=== PATIENT | female | born 1970 | race American Indian/Alaskan Native ===

== ENCOUNTER 2016-05-28 19:25 | Emergency (ER) | payer SELFPAY ==
--- NOTE | 2016-05-28 20:57 | Emergency Department Report ---
Chief Complaint: Nausea/Vomiting/Diarrhea Stated Complaint: FEVER, NOT EATING Time Seen by Provider: 05/28/16 20:51 - HPI History of Present Illness: Patient presents with nausea and vomiting x 3 days, fever, chills, denies diarrhea. No sick contacts. Admits lower back pain radiates down bilateral legs and lower abdomen. Admits to urinary frequency. Denies chest pain, dizziness, shortness of breath. - ROS Review of Systems: All other systems unremarkable except documentation in HPI - Exam Vital Signs: Vital Signs 05/28/16 20:26 Temperature 99.2 F Pulse Rate 70 Respiratory 20 Rate Blood Pressure 142/94 O2 Sat by Pulse 100 Oximetry Physical Exam: Gen: Female well-developed and nourished, no apparent distress noted, ambulatory. Cardiovascular: Heart sounds present S1-S2, no murmur, gallop, edema or ectopy noted, 2+ pulses upper and lower extremities Respiratory: Chest symmetry with respirations, lungs clear to auscultate upper and lower lobes, respirations even and unlabored, no rales, rhonchi, crackles noted. Abdomen: bowel sounds present, soft, nondistended, nontender, no rigidity, guarding or rebound tenderness Psych: AxOx3, answers questions appropriately, mood full range, affect normal, normal speech and tone. MSE screening note: Focused history and physical exam performed. Due to findings the following was ordered: Patient seen by provider, will go to fast track for further evaluation ED Medical Decision Making - Medical Decision Making Patient seen by provider, will go to fast track for further evaluation ED Disposition for MSE Condition: Stable Referrals: PRIMARY CARE [Primary Care Provider] - 3-5 Days
[2016-05-28 21:38] LABS: Basophils % (Auto) 0.2 % (0.0-1.8); Hematocrit 40.7 % (30.3-42.9); Hemoglobin 13.8 gm/dl (10.1-14.3); Mean Corpuscular HGB Conc 34 % (30-34); Mean Corpuscular Hemoglobin 30 pg (28-32); Mean Corpuscular Volume 90 fl (79-97); Platelet Count 239 K/mm3 (140-440); Red Blood Count 4.52 M/mm3 (3.65-5.03); Red Cell Distribution Width 13.5 % (13.2-15.2)
[2016-05-28 21:50] LABS: Anion Gap 20 mmol/L; Blood Urea Nitrogen 8 mg/dL (7-17); Calcium 9.1 mg/dL (8.4-10.2); Carbon Dioxide 23 mmol/L (22-30); Chloride 93.9 mmol/L (98-107); Glucose 100 mg/dL (65-100); Sodium 133 mmol/L (137-145)
[2016-05-28] MEDS ORDERED: ROCEPHIN/NS 1 GM/50 ML 1 GM/50 ML BAG IV ONE (22:36)
[2016-05-28] MEDS ORDERED: NACL 0.9% 1000 ML 1,000 ML IV ONE (22:37)
[2016-05-28] MEDS ORDERED: ZOFRAN IV ONE (22:37)
[2016-05-28] MEDS ORDERED: TORADOL IV ONE (22:37)
[2016-05-28 23:01] LABS: Bacteria,Urine 1+ /HPF (Negative); Bilirubin,Urine NEG (Negative); Blood,Urine LG (Negative); Ketones,Urine 20 mg/dL (Negative); Leukocyte Esterase,Urine TR (Negative); Mucus,Urine 3+ /HPF; Nitrite,Urine POS (Negative)
--- NOTE | 2016-05-29 00:47 | Cat Scan Report ---
FINAL REPORT EXAM: CT ABDOMEN PELVIS WO CON HISTORY: right sided flank pain ? stone TECHNIQUE: Helical CT scan through the abdomen and pelvis without contrast. Images are reconstructed in the sagittal and coronal planes. PRIORS: None. FINDINGS: Solid organ and bowel evaluation is limited without intravenous contrast. Bowel evaluation is limited without oral contrast. The lung bases are clear. The liver, gallbladder, pancreas, spleen and adrenal glands appear normal. The kidneys appear grossly normal. There is no hydronephrosis or urolithiasis. There are multiple phleboliths in the pelvis. The pelvic organs appear grossly normal. There is a small amount of free pelvic fluid. The stomach appears grossly within normal limits. There are no abnormally dilated loops of bowel or acute inflammatory changes. A normal-appearing appendix is identified. The abdominal aorta has a normal diameter. The bones and subcutaneous soft tissues are unremarkable for age. IMPRESSION: There is a small amount of free pelvic fluid which is likely physiologic in nature. Otherwise, no acute findings.
--- NOTE | 2016-05-29 01:07 | Emergency Department Report ---
ED Female HPI - General Chief complaint: Nausea/Vomiting/Diarrhea Stated complaint: FEVER, NOT EATING Time Seen by Provider: 05/28/16 20:51 Source: patient Mode of arrival: Ambulatory Limitations: No Limitations - History of Present Illness Initial comments: 46-year-old female past medical history none presents with complaint of 3 days of increased urinary frequency nausea right-sided flank pain radiating down to the groin. Denies any new rash subjective fever chills, states she has a decreased appetite and vomited yesterday. States that she is experiencing increased urinary frequency and urine has somewhat foul odor. MD Complaint: dysuria Onset/Timin -: days(s) Location: suprapubic Radiation: non-radiating Severity scale (0 -10): 6 Quality: aching Consistency: constant Worsens with: urination Are you Now?: No Associated Symptoms: nausea/vomiting, loss of appetite - Related Data Previous Rx's Medication Instructions Recorded Last Taken Type Amoxicillin [Trimox CAP] 500 mg PO Q8H #30 capsule 07/13/13 Unknown Rx HYDROcodone/APAP 5-325 [[place] 1 each PO Q6HR PRN #20 tablet 07/13/13 Unknown Rx 5/325 mg] Ciprofloxacin HCl [Cipro] 500 mg PO Q12H #10 tab 11/22/13 Unknown Rx HYDROcodone/APAP 10-325 [[place] 1 each PO Q6HR PRN #16 tablet 11/22/13 Unknown Rx 10-325 mg TAB] metroNIDAZOLE [Flagyl] 500 mg PO Q12H #14 tablet 11/22/13 Unknown Rx Ciprofloxacin HCl [Ciprofloxacin 500 mg PO Q12H #14 tab 05/29/16 Unknown Rx TAB] Ibuprofen [Motrin] 600 mg PO Q8H PRN #30 tablet 05/29/16 Unknown Rx Allergies Allergy/AdvReac Type Severity Reaction Status Date / Time No Known Allergies Allergy Verified 05/28/16 20:30 ED Review of Systems ROS: Stated complaint: FEVER, NOT EATING Other details as noted in HPI Constitutional: denies: chills, fever Eyes: denies: eye pain, eye discharge, vision change ENT: denies: ear pain, throat pain Respiratory: denies: cough, shortness of breath, wheezing Cardiovascular: denies: chest pain, palpitations Endocrine: no symptoms reported Gastrointestinal: denies: abdominal pain, nausea, diarrhea Genitourinary: urgency, dysuria. denies: discharge Musculoskeletal: denies: back pain, joint swelling, arthralgia Skin: denies: rash, lesions Neurological: denies: headache, weakness, paresthesias Psychiatric: denies: anxiety, depression Hematological/Lymphatic: denies: easy bleeding, easy bruising ED Past Medical Hx - Past Medical History Previous Medical History?: Yes Additional medical history: hypoglycemic - Surgical History Past Surgical History?: Yes Additional Surgical History: hysterectomy - Social History Smoking Status: Current Every Day Smoker Substance Use Type: Alcohol, Marijuana - Medications Home Medications: Home Medications Medication Instructions Recorded Confirmed Last Taken Type Amoxicillin [Trimox CAP] 500 mg PO Q8H #30 capsule 07/13/13 Unknown Rx HYDROcodone/APAP 5-325 [[place] 1 each PO Q6HR PRN #20 tablet 07/13/13 Unknown Rx 5/325 mg] Ciprofloxacin HCl [Cipro] 500 mg PO Q12H #10 tab 11/22/13 Unknown Rx HYDROcodone/APAP 10-325 [[place] 1 each PO Q6HR PRN #16 tablet 11/22/13 Unknown Rx 10-325 mg TAB] metroNIDAZOLE [Flagyl] 500 mg PO Q12H #14 tablet 11/22/13 Unknown Rx Ciprofloxacin HCl [Ciprofloxacin 500 mg PO Q12H #14 tab 05/29/16 Unknown Rx TAB] Ibuprofen [Motrin] 600 mg PO Q8H PRN #30 tablet 05/29/16 Unknown Rx ED Physical Exam - General Limitations: No Limitations General appearance: alert, in no apparent distress - Head Head exam: Present: atraumatic, normocephalic - Eye Eye exam: Present: normal appearance - ENT ENT exam: Present: mucous membranes moist - Neck Neck exam: Present: normal inspection - Respiratory Respiratory exam: Present: normal lung sounds bilaterally. Absent: respiratory distress - Cardiovascular Cardiovascular Exam: Present: regular rate, normal rhythm. Absent: systolic murmur, diastolic murmur, rubs, gallop - GI/Abdominal GI/Abdominal exam: Present: soft, tenderness (patient has mild right-sided CVA tenderness), normal bowel sounds - Extremities Exam Extremities exam: Present: normal inspection - Back Exam Back exam: Present: normal inspection, CVA tenderness (R) (mild right-sided CVA tenderness) - Neurological Exam Neurological exam: Present: alert, oriented X3 - Psychiatric Psychiatric exam: Present: normal affect, normal mood - Skin Skin exam: Present: warm, dry, intact, normal color. Absent: rash ED Course Vital Signs 05/28/16 20:26 Temperature 99.2 F Pulse Rate 70 Respiratory 20 Rate Blood Pressure 142/94 O2 Sat by Pulse 100 Oximetry ED Medical Decision Making - Lab Data Result diagrams: 05/28/16 21:22 05/28/16 21:22 - Medical Decision Making A/P: Clinical pyelonephritis 1-patient has positive UA with clinical features of pyelonephritis including right-sided flank pain 2-patient does not appear toxic is able to tolerate fluid and food by mouth, feels significantly better with IV fluid and 1 dose of Toradol, 1 g of ceftriaxone given an ED 3-oh place patient on outpatient regimen of antibiotics for pyelonephritis treatment, I advised patient to return to the ED if she cannot tolerate anything by mouth and flank pain worsens or if she develops persistent fevers above 100.4 Fahrenheit despite antibiotic use. Cipro 500 twice a day for 7 days 4- follow-up with primary care doctor this week Critical care attestation.: If time is entered above; I have spent that time in minutes in the direct care of this critically ill patient, excluding procedure time. ED Disposition Clinical Impression: Pyelonephritis Disposition: DISCHARGED TO HOME OR SELFCARE Is pt being admited?: No Does the pt Need Aspirin: No Condition: Stable Instructions: Urinary Tract Infection in Women (ED), Acute Pyelonephritis (ED) Prescriptions: Ciprofloxacin HCl [Ciprofloxacin TAB] 500 mg PO Q12H #14 tab Ibuprofen [Motrin] 600 mg PO Q8H PRN #30 tablet PRN Reason: Pain Referrals: EDA CHÁVEZ MD [Staff Physician] - 3-5 Days [facility] [Outside] - 3-5 Days Forms: Accompanied Note, Work/School Release Form(ED) Time of Disposition: 01:08
[2016-05-29 01:22] VITALS: BP 146/84
== END 2016-05-29 01:22 | disposition home or self-care (01) ==
LOC: ED 19:25
DX: N12 Tubulo-interstitial nephritis, not specified as acute or chronic (principal); F17.200 Nicotine dependence, unspecified, uncomplicated; F12.10 Cannabis abuse, uncomplicated; Z90.710 Acquired absence of both cervix and uterus; Z79.1 Long term (current) use of non-steroidal anti-inflammatories (NSAID); Z79.2 Long term (current) use of antibiotics; Z79.899 Other long term (current) drug therapy
CPT/HCPCS: 36415; 74176; 80048; 81001; 81025; 82962; 85025; 87086; 96365; 96375; 99284; J0696; J1885; J2405; J7030